=== PATIENT | female | born 1990 | race Caucasian/White ===

== ENCOUNTER 2018-05-28 16:33 | Outpatient (REF) | payer BC, SELFPAY ==
[2018-05-28 22:48] LABS: Tricyclic Antidepressants Negative (Negative)
[2018-05-28 22:49] LABS: *AMPHETAMINES SCREEN URINE Negative (Negative); *BARBITURATES SCREEN URINE Negative (Negative); *BENZODIAZEPINES SCREEN URINE Negative (Negative); Cannabinoids THC Negative (Negative); Cocaine Screen,Urine Negative (Negative); METHADONE URINE SCREEN Negative (Negative); OPIATES URINE SCREEN Negative (Negative)
[2018-06-01 10:01] LABS: Buprenorphine Negative; Norbuprenorphine Negative
== END 2018-05-28 16:53 ==
LOC: LBN 16:33
PROVIDERS: Visit Provider Advanced Practice Midwife
DX: Z34.91 Encounter for supervision of normal pregnancy, unspecified, first trimester (principal)
CPT/HCPCS: 80307; 87086

== ENCOUNTER 2018-06-13 10:46 | Outpatient (CLI) | payer BC, SELFPAY ==
[2018-06-13 11:39] LABS: Abs Immature Grans 0.01 k/cumm (0.0-0.09); Absolute Basophil Count 0.01 k/cumm (0.0-0.2); Absolute Eosinophil Count 0.05 k/cumm (0.0-0.7); Absolute Lymphocyte Count 1.58 k/cumm (1.2-3.4); Absolute Monocyte Count 0.34 k/cumm (0.11-0.7); Absolute Neutrophil Count 2.88 k/cumm (1.2-6.7); Basophils % 0.2; Glucose,1 Hr (Glucola) 100 mg/dL (80-140); HCT 40.1 % (36.0-46.0); HGB 13.6 g/dL (12.0-15.5); Immature Grans % 0.2; Lymphocytes % 32.4; Mean Corp. HGB Concentration 33.9 g/dL (32.0-36.0); Mean Corpuscular Hemoglobin 27.5 pg (27.0-33.0); Mean Platelet Volume 9.6 fL (8.0-11.0); Neutrophils % 59.2; Platelet Count 218 x1000/uL (130-400); RBC 4.95 m/cumm (4.00-5.20); RBC Distribution Width 13.1 % (11.7-14.6); White Blood Cell Count 4.87 k/cumm (4.4-10.8)
[2018-06-14 09:13] LABS: Hepatitis B Surface Ag Negative (NEGAT)
[2018-06-14 09:49] LABS: Hepatitis C Ab w Rflx HCV PCR Negative (NEGAT)
[2018-06-14 09:52] LABS: HIV-1/2 Ag & Ab Screen Negative (NEGAT)
[2018-06-14 11:28] LABS: Rubella IgG Ab (UVM) Positive; Syphilis Serology (RPR) Negative (Negative); Varicella IgG Antibody Positive
== END 2018-06-13 11:06 ==
PROVIDERS: PCP Family Medicine; Visit Provider Advanced Practice Midwife
DX: Z34.91 Encounter for supervision of normal pregnancy, unspecified, first trimester (principal); Z11.59 Encounter for screening for other viral diseases; Z01.84 Encounter for antibody response examination; Z11.4 Encounter for screening for human immunodeficiency virus [HIV]
CPT/HCPCS: 36415; 80055; 82950; 86787; 86803; 86850; 86900; 86901; 87340; 87389; 86592; 86762

== ENCOUNTER 2018-07-08 16:33 | Outpatient (REF) | payer BC, SELFPAY | END 2018-07-08 16:53 | LOC: LBN 16:33 | PROVIDERS: PCP Family Medicine; Visit Provider Advanced Practice Midwife | DX: Z34.91 Encounter for supervision of normal pregnancy, unspecified, first trimester (principal) | CPT/HCPCS: 87491; 87591 ==

== ENCOUNTER 2018-07-29 01:35 | Outpatient (CLI) | payer BC, SELFPAY ==
--- NOTE | 2018-07-29 14:22 | DI.US_ITS ---
SYMPTOM/DIAGNOSIS: 18 WK ANATOMY SURVEY Z34.90 OBSTETRICAL ULTRASOUND: Routine examination was performed There is a single living intrauterine gestation. Estimated sonographic age is 19 weeks 4 days. No placental or abnormalities are identified. The face was not well visualized on this examination and the patient is scheduled to return 07/30/18 for imaging of the face. IMPRESSION: Single living intrauterine gestation. Estimated sonographic age is 19 weeks, 4 days 2. The patient will return 07/30/18 for facial images. Many abnormalities cannot be diagnosed. A normal exam does not exclude a congenital anomaly. Radiology No. [id number] LMP: Exam Date: 07/29/18 [facility] wks days on EDC ([facility]) 12/26/18 Confirmed: HISTORY: 18 week survey PREDICTED GESTATIONAL AGE NUMBER 19 +6 weeks with a range of 18 +6 week to 20 +6 weeks. 1 Determined by___1STUS_XX__LMP___HISTORY Info. pertaining to fetus # PLACENTA PRESENTATION Grade 0-I Cephalic___ Anterior_XX__Posterior___ Breech____ Right Left Transverse(head right__XX_ Fundal___Low-lying___Previa___ Transverse(head left___ Varying BIOMETRY AMNIOTIC FLUID BPD: 43 mm 19 +1 weeks Normal HC: 167 mm 19 +2 weeks AC: 142 mm 19 +4 weeks FL: 33 mm 20 +1 weeks AMNIOTIC FLUID INDEX >26 WK CRL: mm weeks Cisterna Magna: 5 mm CI: 0.77 RUQ: LUQ Cerebellum: 1.9 cm EFW: 317 grams Percentile RLQ: LLQ Total: cms Composite AGE= 19 +4 wks EDC by US__12/19/18 BIOPHYSICAL PROFILE ANATOMY IDENTIFIED SCORE 0/2 Heart: 4-Chamber_X__Rate:BPM_137____ LVOT:___X RVOT:__X Amniotic Fluid(>2cms)____ Stomach:___X____ Kidneys:____X___ Respirations (>30 secs) Bladder:___X Post. Fossa: X Body Flex/Extension 3 vessel cord:__X Ventricles:____X cord insertion:__X___ Lips:_N/S___ Extremity Flex/Extension spinal morphology:_X Nose: N/S Total Score= Palate:__X NS=not seen
== END 2018-07-29 01:55 ==
PROVIDERS: PCP Family Medicine; Visit Provider Advanced Practice Midwife
DX: Z34.92 Encounter for supervision of normal pregnancy, unspecified, second trimester (principal)
CPT/HCPCS: 76805

== ENCOUNTER 2018-08-05 00:48 | Outpatient (CLI) | payer BC, SELFPAY ==
--- NOTE | 2018-08-05 16:00 | DI.US_ITS ---
Many abnormalities cannot be diagnosed. A normal exam does not exclude a congenital anomaly. Radiology No. LMP: Exam Date: 08/05/18 [facility] wks days on EDC ([facility]) Confirmed: HISTORY: FU FOR FACIAL VIEWS PREDICTED GESTATIONAL AGE NUMBER weeks with a range of week to weeks. 1 Determined by___1STUS___LMP___HISTORY Info. pertaining to fetus # PLACENTA PRESENTATION Grade 0-1 Cephalic___ Anterior_X__Posterior___ Breech__X__ Right Left Transverse(head right___ Fundal___Low-lying___Previa___ Transverse(head left___ Varying BIOMETRY AMNIOTIC FLUID BPD: mm weeks Normal HC: mm weeks AC: mm weeks FL: mm weeks AMNIOTIC FLUID INDEX >26 WK CRL: mm weeks Cisterna Magna: mm CI: RUQ: LUQ Cerebellum: cm EFW: grams Percentile RLQ: LLQ Total: cms Composite AGE= wks EDC by US BIOPHYSICAL PROFILE ANATOMY IDENTIFIED SCORE 0/2 Heart: 4-Chamber___Rate:BPM LVOT: RVOT: Amniotic Fluid(>2cms)____ Stomach: Kidneys: Respirations (>30 secs) Bladder: Post. Fossa: Body Flex/Extension 3 vessel cord: Ventricles: cord insertion: Lips:__X__ Extremity Flex/Extension spinal morphology: Nose:X Total Score= Palate:____X___ NS=not seen Limited sonographic evaluation of the face was performed following OB ultrasound from 07/29/18. There is a single intrauterine gestation. The fetus is in the breech position. The lips, nose and mouth are unremarkable and well visualized. Amniotic fluid appears within normal limits. The placenta is anterior without evidence of previa.
== END 2018-08-05 01:08 ==
PROVIDERS: PCP Family Medicine; Visit Provider Advanced Practice Midwife
DX: Z34.92 Encounter for supervision of normal pregnancy, unspecified, second trimester (principal); Z36.2 Encounter for other antenatal screening follow-up
CPT/HCPCS: 76815

== ENCOUNTER 2018-08-06 17:44 | Outpatient (REF) | payer BC, SELFPAY ==
[2018-08-08 14:57] LABS: Chlamydia Result Negative; GC Result Negative; Specimen Description URINE
== END 2018-08-06 18:04 ==
LOC: LBN 17:44
PROVIDERS: PCP Family Medicine; Visit Provider Advanced Practice Midwife
DX: Z34.92 Encounter for supervision of normal pregnancy, unspecified, second trimester (principal); Z11.3 Encounter for screening for infections with a predominantly sexual mode of transmission
CPT/HCPCS: 87491; 87591

== ENCOUNTER 2018-10-01 14:54 | Outpatient (CLI) | payer BC, SELFPAY ==
[2018-10-01 15:28] LABS: HGB 12.9 g/dL (12.0-15.5); Mean Corp. HGB Concentration 33.1 g/dL (32.0-36.0); Mean Corpuscular Hemoglobin 27.3 pg (27.0-33.0); Mean Corpuscular Volume 82.6 fL (80-95); Mean Platelet Volume 9.4 fL (8.0-11.0); Platelet Count 237 x1000/uL (130-400); RBC 4.72 m/cumm (4.00-5.20); RBC Distribution Width 13.7 % (11.7-14.6); White Blood Cell Count 7.44 k/cumm (4.4-10.8)
[2018-10-01 15:30] LABS: Glucose,1 Hr (Glucola) 121 mg/dL (80-140)
== END 2018-10-01 15:14 ==
PROVIDERS: Advanced Practice Midwife; PCP Family Medicine; Visit Provider Advanced Practice Midwife
DX: Z34.92 Encounter for supervision of normal pregnancy, unspecified, second trimester (principal)
CPT/HCPCS: 36415; 82950; 85027

== ENCOUNTER 2018-11-26 16:42 | Outpatient (REF) | payer BC, SELFPAY ==
[2018-11-26 18:28] LABS: *AMPHETAMINES SCREEN URINE Negative (Negative); *BARBITURATES SCREEN URINE Negative (Negative); *BENZODIAZEPINES SCREEN URINE Negative (Negative); Cannabinoids THC Negative (Negative); Cocaine Screen,Urine Negative (Negative); METHADONE URINE SCREEN Negative (Negative); OPIATES URINE SCREEN Negative (Negative)
[2018-11-26 18:30] LABS: Tricyclic Antidepressants Negative (Negative)
[2018-12-02 10:00] LABS: Buprenorphine Negative; Norbuprenorphine Negative
== END 2018-11-26 17:02 ==
LOC: LBN 16:42
PROVIDERS: PCP Family Medicine; Visit Provider Advanced Practice Midwife
DX: Z34.93 Encounter for supervision of normal pregnancy, unspecified, third trimester (principal); Z36.85 Encounter for antenatal screening for Streptococcus B
CPT/HCPCS: 80307; 87081

== ENCOUNTER 2019-01-02 08:37 | Outpatient (CLI) | payer BC, SELFPAY | END 2019-01-02 08:57 | PROVIDERS: PCP Family Medicine; Visit Provider Advanced Practice Midwife | DX: O48.0 Post-term pregnancy (principal); Z3A.41 41 weeks gestation of pregnancy | CPT/HCPCS: 59025 ==

== ENCOUNTER 2019-01-03 04:38 | Inpatient (IN) | payer BC, SELFPAY ==
[2019-01-03 05:25] LABS: HCT 39.5 % (36.0-46.0); HGB 13.4 g/dL (12.0-15.5); Mean Corp. HGB Concentration 33.9 g/dL (32.0-36.0); Mean Corpuscular Hemoglobin 27.3 pg (27.0-33.0); Mean Corpuscular Volume 80.6 fL (80-95); Mean Platelet Volume 10.4 fL (8.0-11.0); Platelet Count 227 x1000/uL (130-400); RBC Distribution Width 14.3 % (11.7-14.6); White Blood Cell Count 9.84 k/cumm (4.4-10.8)
[2019-01-03] MEDS: Ibuprofen 600 MG TAB PO ×3 (08:30→20:03)
[2019-01-03] MEDS: Acetaminophen 325 MG TAB 650 MG PO ×3 (08:30→20:02)
[2019-01-04 07:28] LABS: HGB 11.4 g/dL (12.0-15.5); Mean Corp. HGB Concentration 32.6 g/dL (32.0-36.0); Mean Corpuscular Hemoglobin 27.3 pg (27.0-33.0); Mean Corpuscular Volume 83.9 fL (80-95); Mean Platelet Volume 10.4 fL (8.0-11.0); Platelet Count 155 x1000/uL (130-400); RBC 4.17 m/cumm (4.00-5.20); RBC Distribution Width 14.4 % (11.7-14.6)
[2019-01-04] MEDS: Prenatal Multivitamin w/CA,FE TAB 1 TAB PO (10:04)
== END 2019-01-04 12:15 | disposition home or self-care (01) | DRG 807 ==
PROVIDERS: Admitting Provider Advanced Practice Midwife; PCP Family Medicine; Visit Provider Advanced Practice Midwife
DX: O48.0 Post-term pregnancy (principal); Z37.0 Single live birth; Z3A.41 41 weeks gestation of pregnancy; Z67.10 Type A blood, Rh positive; O32.6XX0 Maternal care for compound presentation, not applicable or unspecified
CPT/HCPCS: 36415; 85027; 86850; 86900; 86901

== ENCOUNTER 2019-02-14 12:59 | Outpatient (REF) | payer BC, SELFPAY ==
--- NOTE | 2019-02-14 11:45 | PAPFT_PTH ---
PATIENT: Sheyla Acevedo LOC: [facility] U#:[id number] AGE/SX: 28/F ROOM: RE02/14/[address]: Rc Ortega RN : 1990 BED: DIS: 02/14/2019 SPEC #: [id number] RECD: 02/14/19 13:08 STATUS: GEE CARRASCO #: [id number] MARIANA: 02/14/19 11:[address]: Rc Ortega DEPT: [facility] Cytology RECD BY: Brittani Jackson ENTERED: 02/14/19 13:08 SP TYPE: PAPFT OTHR DR: Terra Godinez Tissues: 1 - CX/ENDOCX FOR PAP SMEARS Procedures: PAP THIN PREP/UVM Screening Comments: [id number]
== END 2019-02-14 13:19 ==
LOC: LBN 12:59
PROVIDERS: PCP Family Medicine; Visit Provider Advanced Practice Midwife
DX: Z12.4 Encounter for screening for malignant neoplasm of cervix (principal)
CPT/HCPCS: 88142

== ENCOUNTER 2020-02-20 16:06 | Outpatient (REF) | payer BC, SELFPAY ==
[2020-02-22 14:52] LABS: Patient Race White; SARS-CoV-2 RNA Undetected (Undetected); SARS-CoV-2 Specimen Source Nasal
== END 2020-02-20 16:26 ==
LOC: NCHCN 16:06
PROVIDERS: PCP Nurse Practitioner; Visit Provider Nurse Practitioner Family
DX: J02.9 Acute pharyngitis, unspecified (principal)
CPT/HCPCS: U0003

== ENCOUNTER 2020-07-21 03:45 | Outpatient (CLI) | payer BC, MEDICAID, SELFPAY ==
[2020-07-21 14:29] LABS: Abs Immature Grans 0.02 10^3/uL (0.0-0.06); Absolute Basophil Count 0.02 10^3/uL (0.0-0.2); Absolute Eosinophil Count 0.05 10^3/uL (0.0-0.7); Absolute Lymphocyte Count 2.06 10^3/uL (1.2-3.4); Absolute Monocyte Count 0.32 10^3/uL (0.1-0.8); Absolute Neutrophil Count 3.69 10^3/uL (1.2-6.7); Basophils % 0.3; Eosinophils % 0.8; HCT 39.6 % (36.0-46.0); HGB 13.4 g/dL (11.2-15.7); Immature Grans % 0.3; Lymphocytes % 33.4; MCH 27.3 pg (27.0-33.0); MCHC 33.8 % (32.0-36.0); MCV 80.7 fL (80-95); Monocytes % 5.2; Nucleated RBC 0 %; Platelet Count 241 10^3/uL (130-400); RBC 4.91 10^6/uL (3.93-5.22); RDW 12.7 % (11.7-14.6); RDW-SD 36.8 fL; WBC 6.16 10^3/uL (4.4-10.8)
[2020-07-21 15:28] LABS: TSH (W/Ref FT4) 1.32 uIU/mL (0.36-3.74)
[2020-07-21 17:36] LABS: *AMPHETAMINES SCREEN URINE Negative (Negative); *BARBITURATES SCREEN URINE Negative (Negative); *BENZODIAZEPINES SCREEN URINE Negative (Negative); Cannabinoids THC Negative (Negative); Cocaine Screen,Urine Negative (Negative); METHADONE URINE SCREEN Negative (Negative); OPIATES URINE SCREEN Negative (Negative)
[2020-07-21 17:39] LABS: Tricyclic Antidepressants Negative (Negative)
[2020-07-22 09:46] LABS: Hepatitis B Surface Ag Negative (Negative)
[2020-07-22 10:24] LABS: Hepatitis C Ab w Rflx HCV PCR Negative (Negative)
[2020-07-22 10:35] LABS: HIV-1/2 Ag & Ab Screen Negative (Negative)
[2020-07-22 12:06] LABS: Varicella IgG Antibody Positive (See Note)
[2020-07-22 12:09] LABS: Rubella IgG Ab (UVM) Positive (See Note)
[2020-07-23 11:20] LABS: Syphilis Total Ab w/Reflex Nonreactive (Nonreactive)
[2020-07-23 15:04] LABS: Chlamydia Result Negative (Negative); GC Result Negative (Negative)
[2020-07-29 09:57] LABS: Buprenorphine Negative ng/mL (Cutoff: 5.0); Norbuprenorphine Negative ng/mL (Cutoff: 2.5)
== END 2020-07-21 03:46 | disposition home or self-care (01) ==
LOC: LBO 03:45
PROVIDERS: PCP Nurse Practitioner; Visit Provider Advanced Practice Midwife
DX: Z34.91 Encounter for supervision of normal pregnancy, unspecified, first trimester (principal); Z11.4 Encounter for screening for human immunodeficiency virus [HIV]; Z11.59 Encounter for screening for other viral diseases; Z01.84 Encounter for antibody response examination; Z11.3 Encounter for screening for infections with a predominantly sexual mode of transmission
CPT/HCPCS: 36415; 80307; 86787; 86803; 86850; 86900; 86901; 87340; 87389; 87491; 87591; 84443; 85025; 86762; 86780; 87086

== ENCOUNTER 2020-08-02 02:00 | Outpatient (CLI) | payer BC, SELFPAY ==
[2020-08-02 15:22] LABS: Glucose,1 Hr (Glucola) 90 mg/dL (80-140)
== END 2020-08-02 02:01 | disposition home or self-care (01) ==
LOC: LBO 02:01
PROVIDERS: PCP Nurse Practitioner; Visit Provider Advanced Practice Midwife
DX: Z34.91 Encounter for supervision of normal pregnancy, unspecified, first trimester (principal)
CPT/HCPCS: 36415; 82950

== ENCOUNTER 2020-11-11 02:37 | Outpatient (CLI) | payer BC, MEDICAID, SELFPAY ==
[2020-11-11 15:05] LABS: HCT 35.5 % (36.0-46.0); HGB 11.9 g/dL (11.2-15.7); MCH 27.2 pg (27.0-33.0); MCHC 33.5 % (32.0-36.0); MCV 81.1 fL (80-95); Platelet Count 237 10^3/uL (130-400); RBC 4.38 10^6/uL (3.93-5.22); RDW 13.4 % (11.7-14.6); RDW-SD 38.8 fL; WBC 7.96 10^3/uL (4.4-10.8)
[2020-11-11 15:12] LABS: Glucose,1 Hr (Glucola) 125 mg/dL (80-140)
== END 2020-11-11 02:38 | disposition home or self-care (01) ==
PROVIDERS: Advanced Practice Midwife; PCP Nurse Practitioner; Visit Provider Advanced Practice Midwife
DX: Z34.93 Encounter for supervision of normal pregnancy, unspecified, third trimester (principal); Z3A.28 28 weeks gestation of pregnancy
CPT/HCPCS: 36415; 82950; 85027

== ENCOUNTER 2021-01-07 20:42 | Outpatient (REF) | payer BC, MEDICAID, SELFPAY ==
[2021-01-07 17:22] LABS: *AMPHETAMINES SCREEN URINE Negative (Negative); *BARBITURATES SCREEN URINE Negative (Negative); *BENZODIAZEPINES SCREEN URINE Negative (Negative); Cannabinoids THC Negative (Negative); Cocaine Screen,Urine Negative (Negative); METHADONE URINE SCREEN Negative (Negative); OPIATES URINE SCREEN Negative (Negative)
[2021-01-07 17:25] LABS: Tricyclic Antidepressants Negative (Negative)
[2021-01-15 11:39] LABS: Buprenorphine Negative ng/mL (Cutoff: 5.0); Norbuprenorphine Negative ng/mL (Cutoff: 2.5)
== END 2021-01-07 20:43 | disposition home or self-care (01) ==
LOC: LBN 20:42
PROVIDERS: PCP Nurse Practitioner; Visit Provider Advanced Practice Midwife
DX: Z34.93 Encounter for supervision of normal pregnancy, unspecified, third trimester (principal); Z36.85 Encounter for antenatal screening for Streptococcus B; Z3A.36 36 weeks gestation of pregnancy
CPT/HCPCS: 80307; 87081

== ENCOUNTER 2021-02-05 06:11 | Inpatient (IN) | payer BC, MEDICAID, SELFPAY ==
[2021-02-05] VITALS (14 sets, daily range): BP systolic 101–133; BP diastolic 64–82; PULSE 61–96; RESP 16–19; TEMP 36.5–36.9; O2SAT 98–99
--- NOTE | 2021-02-05 07:38 | W.PM.OBHPL1 ---
Date of service: 02/05/21 Time of Service: 07:38 Assessment and Plan Assessment and plan (1) Active labor at term: Status: Acute OB-HPI Labor/Delivery History of Present Illness Reason for Visit: R/O LABOR Chief Complaint: Uterine Contractions; Suspected Rupture of Membranes , Associated Signs and Symptoms of Suspected ROM: grossly ruptured for clear fluid. LIS. JESSICA Calculator Estimated Delivery Date Method Current WG Current Estimate 02/02/21 LMP (Certain) 40w 3d Other Estimates 02/02/21 Ultrasound #1 40w 3d Comments: Sheyla presents with grossly ruptured membranes this morning with contractions every 5 minutes that are mild to moderate. Reports active baby. Fluid is clear. LIS History of Present Expected Delivery Route/Plan - CNM FOB/ - Paul Acevedo Desires tub for labor and possibly waterbirth BG Breast feed GBS negative Specific Issues/Plan 1. Declines all optional AP screening, declination form signed 2. Varicose vein in right leg, uses compression stockings and elevation 2a. family hx of thrombophilia, pt had w/up x2, both neg; sister doesn't have a clotting disorder 3. BMI 34, early glucola = 90, GTT at 28 weeks - 125. 4. heartburn - declines medications. relief methods discussed 5. seasonal allergies 6. Considering COVID vaccine PP, partner has had his first dose and will get second around time of delivery Informed Consent Informed Consent: Other (admission and expected NVD reviewed. LIS) Review of Systems All systems reviewed & are unremarkable except as noted in HPI and below PFSH Medical History Encounter for routine follow-up General counseling and advice on contraceptive management Patient is a currently breast-feeding mother state zaman IUP. JESSICA 12/26/18 Family History Maternal Grandmother Clotting disorder while taking estrogen Stroke Mother Clotting disorder DVT after leg injury while on OCPs. Social History Smoking/Tobacco Use Status: Never Smoking risk assessment performed?: Yes Alcohol Intake: former Substance use type: does not use current occupation: [employer] worker Female Reproductive History Menstrual control method: none History History 3 Para 2 Hx # Term Pregnancies 2 Multiple births 0 Hx # Pregnancies 0 Ectopic pregnancies 0 AB induced 0 Hx Number of Living Children 2 AB spontaneous 0 Past Pregnancies Del. Date GA/Weeks # Outcome Route Wgt Sex Labor Lgth Anesthesia Location Prov Complic 04/19/17 41 No Successful vaginal 7 lb 13 oz Female 50 hrs [facility] in [facility] care 01/03/19 41 No Successful vaginal 8 lb 14 oz Female 10 hrs [facility] Delivery Date: 04/19/17 Spont labor onset day of scheduled IOL for post dates, AROM, used tub, ambulation, long labor but 15 minutes pushing, no stitches. Chiquita Reed Delivery Date: 01/03/19 FOB helped catch baby, good experience. Was going to do a waterbirth but told to get out of tub for lab draw and then no time to get back in. Chiquita Reed Meds Allergies and Home Medications Allergies Allergy/AdvReac Type Severity Reaction Status Date / Time No Known Allergies Allergy Verified 02/05/21 07:42 Home Medications Medication Instructions Recorded Confirmed Type prenat.vits,nyla,[id number] 1 tab PO DAILY 04/24/18 02/05/21 History Exam Physical Exam Vital signs: Temp Pulse BP 98.4 F 87 117/82 02/05/21 06:35 02/05/21 06:37 02/05/21 06:37 Vital Signs Reviewed: Yes Constitutional Constitutional: no acute distress Detailed Labor and Delivery Exam Grace Score: Cervical Points Exam 0 1 2 3 Dilation Closed 1-2cm 3-4 cm 5-6cm Effacement 0-30% 40-50% 60-70% 80% Consistency Firm Medium Soft Station -3 -2 -1,0 +1,+2 Position Posterior Mid Anterior Rupture Method: Spontaneous Amniotic Fluid: Clear Monitor Mode: Palpation Contraction Frequency(min): 5 Contraction Duration(sec): 45-60 Contraction Intensity: Mild/Moderate Fetus A Presentation: Cephalic Categories: Category I Date of Membrane Rupture: 02/05/21 Time of Membrane Rupture: 03:00 Assessment Note: 20-30 minute tracing on arrival CAT I, reassuring. KH HEENT Exam HEENT Exam: Normal Neck Exam Neck Exam: Not Done Chest/Brest/Axilla Exam Chest Exam: Not Done Breast Exam Breast Exam: Not Done Respiratory Exam Respiratory Exam: Normal Cardiovascular Exam Cardiovascular Exam: Normal Abdominal Exam Abdominal Exam: Normal (gravid, fundal akua 39, EFW 9lb) Rectal Exam Rectal Exam: Not Done Exam Exam: Normal Extremities Exam Extremities Exam: Normal Back/Spine/Pelvis Exam Back Exam: Not Done Pelvis Adequate: Yes Skin Exam Skin Exam: Normal Neurological Exam Neurological Exam: Normal Psychiatric Exam Psychiatric Exam: Normal Results Results Group Beta Strep: Negative Blood Type: A+ Rubella Status: Immune Varicella Immunity: Immune Risk Assessment Risk for Shoulder Dystocia Historical/Initial OB: POSITIVE FOR: Pre- BMI>30; NEGATIVE FOR: Pelvic Abnormality, Previous Shoulder Dystocia or Previous Macrosomia 40 Weeks: NEGATIVE FOR: EFW> 4500 gms, Maternal Weight Gain >40lb or Post Dates Increased Risk?: No Date/Initial: 02/05/21 Delivery Plan @ 36wks: NVD expected. Risk for Pre-Eclampsia Daily Dose ASA Indicated: No Yes, if one or more: NEGATIVE FOR: Hx Pre-E/Gest HTN, Chronic HTN, Multiple Gestation, Pre-gestational DM, Renal Disease, Systemic Lupus or APA Syndrome Yes, if 2 or more: POSITIVE FOR: BMI>30; NEGATIVE FOR: Nulliparity, Age>= 35 yrs, >10yr btwn pregnancies, ethinicty, Mother/Sister w/ Pre-E or Previous IUGR Risk for Post- Hemorrhage Initial: NEGATIVE FOR: Multiple Gestation, Previous PPH, Known Clotting Deficiency (pt had negative thrombophilia w/up twice d/t fam hx, (@[facility])), Grand Multiparity or Anticoagulation At Risk?: No Counseled re: Active Management: Yes Date/Initials: 02/05/21 Risks Reviewed Risks Reviewed Upon Admission: Yes
[2021-02-05 07:45] LABS: Source Nasal/Nares
[2021-02-05 07:52] LABS: HCT 38.5 % (36.0-46.0); HGB 12.8 g/dL (11.2-15.7); MCH 26.5 pg (27.0-33.0); MCHC 33.2 % (32.0-36.0); MCV 79.7 fL (80-95); MPV 10.3 fL (8.0-11.0); Platelet Count 220 10^3/uL (130-400); RBC 4.83 10^6/uL (3.93-5.22); RDW 14.8 % (11.7-14.6); RDW-SD 42.6 fL; WBC 7.81 10^3/uL (4.4-10.8)
[2021-02-05 08:38] LABS: COVID-19 PCR Negative (Negative)
--- NOTE | 2021-02-05 10:12 | W.OBDELIVERY ---
Date of service: 02/05/21 Time of Service: 10:13 OB Labor/ Delivery Information Baby A Delivery Delivery Method: Spontaneaous Presentation: Cephalic Cephalic Position: Vertex Vertex Position: Right Occipital Anterior Breech Position: N/A Cord Description-Baby A: 3 Vessels Amniotic Fluid: Clear Delivery Outcome: Liveborn Complications: none Infant Transferred: Remains with Mother Note: Sheyla presented in active labor after SROM at 0300 this monring and progressed to complete dilation with involuntary urge to push while standing at bedside at 0856. She pushed with good effort and live female delivered ABNER after rotating from LOP while at 0947. Baby's shoulders delivered with ease and baby was brought to Mother's abdomen for skin to skin with Mother reaching down to deliver body of baby. at one minute 9 and at 5 minutes was 9. 3 vessel cord. Weight pending to allow for skin to skin and breast feeding. Placenta delivered spontaneously via juan mechanism at 0956. Fundus firms to U with massage and 10 units of pitocin were given IM prior to placenta delivering. QBL 150. Perineum and vagina intact. Sponge, needle and instrument count are correct. Mother and baby girl Dex Acevedo are in satisfactory condition. Baby was at breast nursing well within 15 minutes of delivery. Providers Nurse Real Estate Assessor: Analilia Gregory Nurse: Astrid Lindsay Nurse: Chayito Castro Labor/Delivery Information Number of Babies in Womb: 1 Steroids Given: None Reason Steroids Not Administered: N/A Group Beta Strep: Negative Antibiotics Administered: No Rubella Status: Immune Blood Type: A+ Varicella Immunity: Immune Maternal Complications: None Shoulder Dystocia: No Stages of Labor Onset of Labor Date: 02/05/21 Onset of Labor Time: 06:25 Complete Dilatation Date: 02/05/21 Labor - Stage 1 Duration: 0 minutes ROM Baby A: 02/05/21 ROM Baby A: 03:00 ROM Total Time- Baby A: [id number] Delivery Date-Baby A: 02/05/21 Infant Delivery Time-Baby A: 09:47 Placenta Delivery Date-Baby A: 02/05/21 Placenta Delivery Time-Baby A: 09:56 Labor-Stage 3 Duration: 9 minutes Total Length of Labor-Baby A: 3 hours and 22 minutes Placenta Cultured: No Placenta Status: Delivered Baby A Infant Gender: Female Gestational Status: Term (39-41.6 wks) Gestational Age in Weeks/Days: 40 Weeks and 3 Days weight: 7 lb 4 oz Score-1 Minute Interval(Baby A) Heart Rate-1 minute: 100 BPM or Greater Respiratory Effort- 1 minute: Spontaneous/Strong Cry Muscle Tone-1 minute: Active Movement Reflex Response-1 minute: Prompt Response Color-1 minute: Bluish Hands or Feet Score-5 Minute Interval(Baby A) Heart Rate- 5 minute: 100 BPM or Greater Respiratory Effort-5 minute: Spontaneous/Strong Cry Muscle Tone-5 minute: Active Movement Reflex Response-5 minute: Prompt Response Color-5 minute: Bluish Hands or Feet
[2021-02-05] MEDS: Methylergonovine 0.2 MG/ML VIAL IM (11:09)
[2021-02-05] MEDS: Oxytocin 10 UNITS/ML VIAL IM (11:09)
--- NOTE | 2021-02-05 11:13 | W.PM.PROGNOT ---
Date of Service Date of service: 02/05/21 Time of Service: 11:13 Assessment and Plan Assessment and plan (1) care following vaginal delivery: Start date: 02/05/21 Start time: 11:16 Status: Acute Assessment and plan: will allow patient to be out of bed and shower and void. Due to mildly increased lochia will give Mthergine 0.2mg IM now as well. Nursing will continue to monitor for any increase in bleeding. LIS Subjective Subjective Patient reports: no new complaints, tolerating liquids well and tolerating a regular diet Exam Narrative Exam Narrative: fundus is firm but above U, moderate lochia. Resp Effort & Inspection: normal respiratory effort Cardio Rate: regular rate External Female Exam: normal external appearance Psych Appearance: grossly normal Mood: congruent mood Attitude: cooperative Thought Content: normal Insight: insight good Judgment: judgment good Objective Last Vital Signs Temp 98.4 F 02/05/21 06:35 Pulse 83 02/05/21 10:51 BP 121/80 02/05/21 10:51 Laboratory Results - last 24 hr 02/05/21 02/05/21 02/05/21 07:24 07:30 07:30 WBC 7.81 RBC 4.83 Hgb 12.8 Hct 38.5 MCV 79.7 L MCH 26.5 L MCHC 33.2 RDW 14.8 H Plt Count 220 MPV 10.3 COVID-19 Source Nasal/Nares SARS-CoV-2 (PCR) Negative Patient ABO/Rh A Positive Antibody Screen NEGATIVE Objective Narrative Objective Narrative: VS stable
[2021-02-05] MEDS: Ibuprofen 600 MG TAB PO (13:06)
[2021-02-05] MEDS: Acetaminophen 325 MG TAB 650 MG PO (16:29)
[2021-02-06 07:39] VITALS: BP 103/71; PULSE 86; RESP 12; TEMP 36.5; O2SAT 97
--- NOTE | 2021-02-06 09:14 | W.PM.OBDISCH ---
Date of service: 02/06/21 Time of Service: 09:14 DS: Diagnosis Discharge Diagnosis (1) care following vaginal delivery: Status: Acute Asessment and Plan: Caring for baby independently. Pain is managed well with oral analgesics. Voiding without difficulty. well. A - stable mother and baby , Post day 1, well. 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 Routine post instructions. [facility] Discharge Plan Discharge Details Reason For Visit: R/O LABOR Admit Date/Time: 02/05/21 06:11 Admit Provider: Analilia Daniel Attending Provider: Analilia Daniel Primary Care Provider: Kristyn Lara Home Meds and New Rx's Prescriptions: Continued prenat.vits,nyla,[id number] tablet 1 tab PO DAILY RF: 0 Discharge Instructions Stand Alone Forms: BC Post Vaginal Deliver Activity:: Activity as Tolerated Activity:: Activity as Tolerated Equipment/Supplies:: No Equipment Needed Diet:: As Tolerated OB:DS Summary Summary Vaginal Delivery Method: Spontaneaous Episiotomy Description: None Laceration Description: None Laceration Extension: N/A Contraception Discussed Contraception Discussed: Yes Contraceptive Plan: IUD, [place] Gender-Baby A: Female weight: 7 lb 4 oz Status at Discharge Functional status at discharge: independent ambulation Overall status at discharge: patient is back to baseline Mental Status: mental status grossly normal Speech and Movement: speech and movement normal Mood: congruent mood Affect: normal affect Exam Physical Exam Vital signs: Temp Pulse Resp BP Pulse Ox 97.7 F 86 12 103/71 97 02/06/21 07:39 02/06/21 07:39 02/06/21 07:39 02/06/21 07:39 02/06/21 07:39 Constitutional Constitutional: no acute distress Respiratory Exam Respiratory Exam: Normal Cardiovascular Exam Cardiovascular Exam: Normal Fundal Exam Fundus: Below Umbilicus and Firm Rectal Exam Rectal Exam: Normal Extremities Exam Extremity Exam: Normal Skin Exam Skin Exam: Normal Psychiatric Exam Psychiatric Exam: Normal [facility] Medical History Encounter for routine follow-up General counseling and advice on contraceptive management Patient is a currently breast-feeding mother state zaman IUP. JESSICA 12/26/18 Family History Maternal Grandmother Clotting disorder while taking estrogen Stroke Mother Clotting disorder DVT after leg injury while on OCPs. Social History Smoking/Tobacco Use Status: Never Smoking risk assessment performed?: Yes Alcohol Intake: former Substance use type: does not use current occupation: [employer] worker Female Reproductive History Menstrual control method: none History History 3 Para 2 Hx # Term Pregnancies 2 Multiple births 0 Hx # Pregnancies 0 Ectopic pregnancies 0 AB induced 0 Hx Number of Living Children 2 AB spontaneous 0 Past Pregnancies Del. Date GA/Weeks # Outcome Route Wgt Sex Labor Lgth Anesthesia Location Prov Complic 04/19/17 41 No Successful vaginal 7 lb 13 oz Female 50 [place] [facility] [place] [facility] care 01/03/19 41 No Successful vaginal 8 lb 14 oz Female 10 hrs [facility] Delivery Date: 04/19/17 Spont labor onset day of scheduled IOL for post dates, AROM, used tub, ambulation, long labor but 15 minutes pushing, no stitches. Chiquita Reed Delivery Date: 01/03/19 FOB helped catch baby, good experience. Was going to do a waterbirth but told to get out of tub for lab draw and then no time to get back in. Chiquita Reed DS: Data Vitals/I&O Vitals and I&O: Vital Signs Temperature 97.7 F 02/06/21 07:39 Pulse 86 02/06/21 07:39 Pulse Rhythm Regular 02/05/21 20:41 Respiratory Rate 12 02/06/21 07:39 Respiratory Depth Normal 02/06/21 07:15 Blood Pressure 103/71 02/06/21 07:39 Blood Pressure Mean 81 02/06/21 07:39 Pulse Oximetry 97 02/06/21 07:39 Pain Level 3 02/05/21 16:29 Intake & Output 02/05/21 02/05/21 02/06/21 11:59 23:59 11:59 Output Total 640 / 1590 950 / 1590 Balance -640 / -1590 -950 / -1590 Output: Urine 500 / 1450 950 / 1450 Blood 140 / 140 Other: Urine Color Yellow
== END 2021-02-06 13:00 | disposition home or self-care (01) | DRG 807 ==
PROVIDERS: Admitting Provider Advanced Practice Midwife; PCP Nurse Practitioner; Visit Provider Advanced Practice Midwife
DX: O22.03 Varicose veins of lower extremity in pregnancy, third trimester (principal); Z37.0 Single live birth; Z3A.40 40 weeks gestation of pregnancy; Z20.822 Contact with and (suspected) exposure to COVID-19
CPT/HCPCS: 36415; 85027; 86850; 86900; 86901; 87635; J2210; J2590

== ENCOUNTER 2021-02-12 18:28 | Emergency (ER) | payer BC, MEDICAID, SELFPAY ==
[2021-02-12 18:30] VITALS: PULSE 78; RESP 18; TEMP 36.1; O2SAT 99
--- NOTE | 2021-02-12 18:30 | ED.GENADUL_ITS ---
Discharge Plan Disposition Patient Disposition: HOME Condition: Stable Discharge Details Clinical Impression: Leg pain Primary Care Provider: Kristyn Lara ED Provider: Joaquin Walls Home Meds and New Rx's Prescriptions: Continued prenat.vits,nyla,jow-csfy-cexyt tablet 1 tab PO DAILY RF: 0 Discharge Instructions Instructions: Leg Pain (ED) Additional Instructions: Your examination is most consistent with superficial phlebitis or DVT, less suspicious for cellulitis. Laboratory values were drawn and are pending, I will not make UA here in the ER for the results as they will not change her disposition this evening. You have been given a single dose of Lovenox now, return to the ER tomorrow morning at 8:45 AM and our product/device technologist will be coming in at 9 AM to perform an ultrasound of your leg to rule out DVT. Please watch for new or worsening symptoms and return to the ER sooner as needed. Medical Decision Making 30-year-old female, 8 days , presents for atraumatic posterior right leg pain and swelling. Clinically most concerning for DVT versus superficial phlebitis. Less likely cellulitis in nature. Would like to obtain ultrasound but it is Sunday evening and we do not have ultrasound capabilities. Contact our radiology department and attempted to call in a tech but unsuccessful. The best I can do is set her up for an ultrasound tomorrow at 9 AM, the tech early intervention school psychologist will come in but does want a D-dimer ordered. Given my clinical suspicion, and the fact that she is just , I want an ultrasound regardless of what the D-dimer is. Patient will be given a single dose of Lovenox now. Will obtain CBC, CMP, coags and D-dimer. I will not set the patient up with outpatient ultrasound as the plan will be for her to return to the ER at 8:45 AM and our c2 tactical analysis technician will come to the hospital at 9 AM to perform the ultrasound. I will not make the patient await her laboratory values this evening as they will likely not change her disposition and she has a-day-old baby with her. Standard discharge and return precautions This documentation was generated using Pcs[employer]ation system, please disregard any oddities of phrase or misspellings. Medical Records Medical records reviewed: Yes I reviewed the patient's medical records. Lab Data Lab results reviewed: Yes I reviewed the patient's lab results. Labs: Laboratory Tests Range/Units 02/12/21 02/12/21 02/12/21 19:20 19:20 19:20 WBC (4.4-10.8) 10^3/uL 5.39 RBC (3.93-5.22) 10^6/uL 4.90 Hgb (11.2-15.7) g/dL 12.9 Hct (36.0-46.0) % 40.5 MCV (80-95) fL 82.7 MCH (27.0-33.0) pg 26.3 L MCHC (32.0-36.0) % 31.9 L RDW (11.7-14.6) % 14.1 Plt Count (130-400) 10^3/uL 279 MPV (8.0-11.0) fL 9.2 Immature Gran % 0.6 Neutrophils % 50.7 Lymphocytes % 39.3 Monocytes % 6.9 Eosinophils % 1.9 Basophils % 0.6 Nucleated RBC % % 0 Absolute Neutrophils (1.2-6.7) 10^3/uL 2.74 Absolute Lymphocytes (1.2-3.4) 10^3/uL 2.12 Absolute Monocytes (0.1-0.8) 10^3/uL 0.37 Absolute Eosinophils (0.0-0.7) 10^3/uL 0.10 Absolute Basophils (0.0-0.2) 10^3/uL 0.03 PT (9.3-11.0) sec 9.7 INR (0.9-1.1) 1.0 APTT (21.0-27.5) sec 23.2 D-Dimer (<500) ng/mlFEU 982 H Sodium (136-145) mmol/L 140 Potassium (3.5-5.1) mmol/L 3.8 Chloride (98-107) mmol/L 104 Carbon Dioxide (21.0-32.0) mmol/L 27.1 Anion Gap (3-11) mmol/L 8.9 BUN (7-18) mg/dL 11 Creatinine (0.55-1.02) mg/dL 0.7 Estimated GFR/1.73 m2 (mL/min/1.73m2) >= 60.00 Glucose (74-106) mg/dL 94 Calcium (8.5-10.1) mg/dL 9.3 Total Bilirubin (0.2-1.0) mg/dL 0.3 AST (15-37) U/L 51 H ALT (14-59) U/L 97 H Alkaline Phosphatase (46-116) U/L 119 H Total Protein (6.4-8.2) g/dL 7.5 Albumin (3.4-5.0) g/dL 3.3 L HPI General Mode of arrival: ambulatory . Date/Time Provider Initiated Documentation: 02/12/21 18:29 . Limitations to Documentation: no limitations . Information obtained by: patient . HPI Narrative: This is a 30-year-old, denies significant past medical history, from an uncomplicated vaginal on 02-04-21, presenting to the ER complaining of right leg pain, swelling, concern for DVT. Patient states that the issue began on Sunday, nontraumatic. She denies any fever, chest pain, shortness of breath, history of DVT. Patient states that there is a family history of DVT. She reports that she has no more true vaginal bleeding and now only has occasional spotting. Patient has no additional questions or concerns at this time. She is currently breast-feeding. She contacted her content curator who recommended coming to the ER. Related Data Home Medications Medication Instructions Recorded Confirmed prenat.vits,nyla,qrx-npru-vwgir 1 tab PO DAILY 04/24/18 02/12/21 Allergies Allergy/AdvReac Type Severity Reaction Status Date / Time No Known Allergies Allergy Verified 02/12/21 18:33 Review of Systems Constitutional Constitutional: Denies fever(s) Cardiovascular Cardiovascular: Denies chest pain and Denies dyspnea Respiratory Respiratory: Denies cough and Denies dyspnea Integumentary/Breasts Skin/Breast: Reports erythema Hematologic/Lymphatic Hematologic/Lymphatic: Denies easy bleeding and Denies easy bruising [facility] Medical History Encounter for routine follow-up General counseling and advice on contraceptive management Patient is a currently breast-feeding mother state zaman IUP. JESSICA 12/26/18 Family History Maternal Grandmother Clotting disorder while taking estrogen Stroke Mother Clotting disorder DVT after leg injury while on OCPs. Social History Smoking/Tobacco Use Status: Never Smoking risk assessment performed?: Yes Alcohol Intake: former Drug use: Never Substance use type: does not use current occupation: [employer] worker Do you feel safe at home: Yes Do you feel safe in your relationship?: Yes Female Reproductive History Menstrual control method: none History History 3 Para 2 Hx # Term Pregnancies 2 Multiple births 0 Hx # Pregnancies 0 Ectopic pregnancies 0 AB induced 0 Hx Number of Living Children 2 AB spontaneous 0 Past Pregnancies Del. Date GA/Weeks # Outcome Route Wgt Sex Labor Lgth Anesthes ia Location Prov Complic 04/19/17 41 No Successful vaginal 3543.69 g Female 50 hrs [facility] care 01/03/19 41 No Successful vaginal 4025.632 g Female 10 hrs [facility] Delivery Date: 04/19/17 Spont labor onset day of scheduled IOL for post dates, AROM, used tub, ambulation, long labor but 15 minutes pushing, no stitches. Chiquita Reed Delivery Date: 01/03/19 FOB helped catch baby, good experience. Was going to do a waterbirth but told to get out of tub for lab draw and then no time to get back in. Chiquita Reed Exam Const General: cooperative, healthy appearing, comfortable and no acute distress Orientation: alert and awake [facility] Head: normal to inspection, normocephalic and atraumatic Eyes General: appearance normal, both eyes and all related structures Conjunctivae: conjunctivae normal Neck Neck: normal visual inspection, trachea midline and supple Resp Effort & Inspection: normal respiratory effort and able to speak in complete se ntences Auscultation: clear to auscultation bilaterally Cardio Rate: regular rate Rhythm: regular rhythm Skin General skin exam: erythema Neuro General: patient alert, patient awake, moves all extremities and no focal motor deficits Cognition: normal cognition Speech: speech normal Gait: normal gait Sensory Exam: no sensory deficits noted Extrem General: full ROM and capillary refill normal Knee images: 1. Bilateral lower extremities with diffuse patchy varicose veins. Right leg posterior lateral knee with an area of erythema, induration, firmness. There is no drainage or fluctuance. No true warmth. Diffuse mild discomfort to palpation. Positive Homans' sign. Skin is intact Psych Appearance: grossly normal Mental Status: mental status grossly normal
[2021-02-12 19:26] LABS: Abs Immature Grans 0.03 10^3/uL (0.0-0.06); Absolute Basophil Count 0.03 10^3/uL (0.0-0.2); Absolute Lymphocyte Count 2.12 10^3/uL (1.2-3.4); Absolute Monocyte Count 0.37 10^3/uL (0.1-0.8); Absolute Neutrophil Count 2.74 10^3/uL (1.2-6.7); Basophils % 0.6; Eosinophils % 1.9; HCT 40.5 % (36.0-46.0); HGB 12.9 g/dL (11.2-15.7); Immature Grans % 0.6; Lymphocytes % 39.3; MCH 26.3 pg (27.0-33.0); MCHC 31.9 % (32.0-36.0); MCV 82.7 fL (80-95); MPV 9.2 fL (8.0-11.0); Monocytes % 6.9; Neutrophils % 50.7; Nucleated RBC 0 %; Platelet Count 279 10^3/uL (130-400); RDW 14.1 % (11.7-14.6); RDW-SD 42.2 fL; WBC 5.39 10^3/uL (4.4-10.8)
[2021-02-12] MEDS: Enoxaparin 120 MG/0.8 ML SYR SC (19:27)
[2021-02-12 19:40] LABS: PTT Activated 23.2 sec (21.0-27.5); Prothrombin Time 9.7 sec (9.3-11.0)
[2021-02-12 19:43] LABS: ALT 97 U/L (14-59); AST 51 U/L (15-37); Albumin 3.3 g/dL (3.4-5.0); Alkaline Phosphatase 119 U/L (46-116); Anion Gap 8.9 mmol/L (3-11); BUN 11 mg/dL (7-18); Bilirubin, Total 0.3 mg/dL (0.2-1.0); CO2 27.1 mmol/L (21.0-32.0); CREATININE 0.7 mg/dL (0.55-1.02); Calcium 9.3 mg/dL (8.5-10.1); Chloride 104 mmol/L (98-107); Glucose 94 mg/dL (74-106); Potassium 3.8 mmol/L (3.5-5.1); Sodium 140 mmol/L (136-145); Total Protein 7.5 g/dL (6.4-8.2)
[2021-02-12 20:14] LABS: D-Dimer 982 ng/mlFEU (<500)
== END 2021-02-12 19:40 | disposition home or self-care (01) ==
PROVIDERS: Emergency Provider Physician Assistant; PCP Nurse Practitioner
DX: M79.661 Pain in right lower leg (principal); M79.89 Other specified soft tissue disorders
CPT/HCPCS: 80053; 96372; 99284; 85025; 85379; 85610; 85730; J1650

== ENCOUNTER 2021-02-13 08:46 | Emergency (ER) | payer BC, MEDICAID, SELFPAY ==
--- NOTE | 2021-02-13 08:45 | DI.US_ITS ---
Exam(s) US LOWER EXTREMITY VENOUS RT EXAM: US LOWER EXTREMITY VENOUS RT CLINICAL HISTORY: Post swelling TECHNIQUE: Right lower extremity venous ultrasound performed using grayscale, color-flow, and spectr al Doppler analysis. COMPARISON: No exams were available for comparison FINDINGS: The right common femoral, femoral and popliteal veins demonstrate normal compressibility, augmentatio n, and color Doppler. The posterior tibial veins are patent. The saphenofemoral junction is unremark able. There is no evidence of a Villeda cyst. The soft tissues are unremarkable. There is thrombus se en in a superficial vein in the proximal and lateral calf 3 cm in length. IMPRESSION: 1. No DVT. 2. Superficial thrombophlebitis. DATA REPOSITORY:
--- NOTE | 2021-02-13 08:48 | W.ED.GENAD ---
Discharge Plan Disposition Patient Disposition: HOME Condition: Improving Discharge Details Clinical Impression: Thrombophlebitis Primary Care Provider: Kristyn Lara ED Provider: Murali Adams Home Meds and New Rx's Prescriptions: Continued prenat.vits,nyla,ets-mcpk-pitzn tablet 1 tab PO DAILY RF: 0 Discharge Instructions Instructions: Superficial Thrombophlebitis (ED) Additional Instructions: May use ibuprofen/Advil 600 to 800 mg every 8 hours. Apply warm/moist heat to area to improve blood flow and break up the superficial blood clot. Follow-up with ASSISTANT PROJECT MANAGER as we discussed, please call in the morning for an appointment time for a blood pressure recheck on Sunday or Sunday. Return to the ER for any acute concerns. Avoid any Tylenol until your liver enzymes have been rechecked. Medical Decision Making 30-year-old female who is 9 days , seen in the ER yesterday for right leg pain and swelling with a different diagnosis of superficial thrombophlebitis versus DVT. Labs including a D-dimer of 982 were obtained, case discussed with OB as well as radiology and plan for outpatient return today for ultrasound was made. Patient returns with no new complaints in the interim. She does have periods of probable right lateral superficial thrombophlebitis. Her labs from yesterday noted the elevated D-dimer as well as slight transaminitis which I discussed with her. Ultrasound today: Superficial thrombophlebitis, no DVT. Given elevated blood pressure today of 137/91, urinalysis was obtained with mild contamination, will be cultured, note of urine protein creatinine ratio 0.21. Discussed findings with on-call county attorney, Chiquita Reed. We will have the patient follow-up on Sunday or Sunday for blood pressure recheck as well as reschedule recheck on Sunday. She is stable and appropriate for discharge to home. HPI General Mode of arrival: ambulatory. Date/Time Provider Initiated Documentation: 02/13/21 08:46. Limitations to Documentation: no limitations. Information obtained by: patient. History of Present Illness 30 year old F presents to the emergency department with the chief complaint of 8 days , right leg pain and swelling, described as moderate, Quality is described as dull and constant, and is localized to the right and lower extremity. Patient reports no radiation. and it has been constant. No relieving factors improve symptom(s), No exacerbating factors reported . Related Data Home Medications Medication Instructions Recorded Confirmed prenat.vits,nyla,igt-qhro-resxa 1 tab PO DAILY 04/24/18 02/13/21 Allergies Allergy/AdvReac Type Severity Reaction Status Date / Time No Known Allergies Allergy Verified 02/13/21 09:04 General SEE: 3 Review of Systems Narrative: No other complaint. Breast feeding [facility] Medical History Encounter for routine follow-up General counseling and advice on contraceptive management Patient is a currently breast-feeding mother state zaman IUP. JESSICA 12/26/18 Family History Maternal Grandmother Clotting disorder while taking estrogen Stroke Mother Clotting disorder DVT after leg injury while on OCPs. Social History Smoking/Tobacco Use Status: Never Smoking risk assessment performed?: Yes Alcohol Intake: former Drug use: Never Substance use type: does not use current occupation: [employer] worker Do you feel safe at home: Yes Do you feel safe in your relationship?: Yes Female Reproductive History Menstrual control method: none History History 3 Para 2 Hx # Term Pregnancies 2 Multiple births 0 Hx # Pregnancies 0 Ectopic pregnancies 0 AB induced 0 Hx Number of Living Children 2 AB spontaneous 0 Past Pregnancies Del. Date GA/Weeks # Outcome Route Wgt Sex Labor Lgth Anesthesia Location Prov Compl 04/19/17 41 No Successful vaginal 3543.69 g Female 50 hrs [facility] [facility] in [facility] care 01/03/19 41 No Successful vaginal 4025.632 g Female 10 hrs [facility] Delivery Date: 04/19/17 Spont labor onset day of scheduled IOL for post dates, AROM, used tub, ambulation, long labor but 15 minutes pushing, no stitches. Chiquita Reed Delivery Date: 01/03/19 FOB helped catch baby, good experience. Was going to do a waterbirth but told to get out of tub for lab draw and then no time to get back in. Chiquita Reed Exam Narrative Exam Narrative: GEN: awake, alert, oriented 3. Pleasant, well groomed, interactive. HEAD: Normocephalic, atraumatic EYES: PERRL, EOMI NECK: Full ROM, no NABIL, no menigismus EXT: Full ROM, right lateral/posterior calf with raised, erythematous cord, no direct posterior cord. Normal motor and gait Neuro: Grossly normal neurologic exam, conversant, interactive. Psych: Speech fluent, thoughts congruent, affect normal
[2021-02-13 09:04] VITALS: BP 137/91; PULSE 100; RESP 18; TEMP 36.8; O2SAT 97
[2021-02-13 10:20] VITALS: BP 117/83; PULSE 76; RESP 18; O2SAT 97
[2021-02-13 10:22] LABS: Bilirubin Negative (Negative); Blood Large (Negative); Clarity Sl Cloudy (Clear); Glucose Negative (Negative); Ketones Negative (Negative); Leukocyte Esterase Moderate (Negative); Nitrite Negative (Negative); Urobilinogen 0.2 EU/dL (Up TO 0.2); pH 7.5 (5-8)
[2021-02-13 10:31] LABS: Bacteria Few HPF (Negative); C & S Indicated? Yes; Casts Negative LPF (Negative); Crystals Negative HPF (Negative); Epithelial Cells Few HPF (Negative); Mucus Trace (Negative); RBC 20-50 HPF (0-2)
[2021-02-13 11:18] LABS: PROTEIN 11.6 mg/dL
[2021-02-13 11:20] LABS: COMMENT (LAB VIEW ONLY) 53.35 mg/dL; Prot/Crea Ur Ratio 0.21
[2021-02-13 11:43] VITALS: RESP 18
== END 2021-02-13 11:43 | disposition home or self-care (01) ==
PROVIDERS: Emergency Provider Emergency Medicine; PCP Nurse Practitioner
DX: I80.01 Phlebitis and thrombophlebitis of superficial vessels of right lower extremity (principal)
CPT/HCPCS: 99284; 81003; 81015; 82565; 84156; 87086; 93971; 99283

== ENCOUNTER 2021-02-18 03:31 | Outpatient (CLI) | payer BC, MEDICAID, SELFPAY ==
[2021-02-18 16:42] LABS: ALT 172 U/L (14-59); AST 85 U/L (15-37); Albumin 3.7 g/dL (3.4-5.0); Alkaline Phosphatase 129 U/L (46-116); Anion Gap 9.7 mmol/L (3-11); BUN 11 mg/dL (7-18); Bilirubin, Total 0.4 mg/dL (0.2-1.0); CO2 27.3 mmol/L (21.0-32.0); CREATININE 0.8 mg/dL (0.55-1.02); Calcium 9.3 mg/dL (8.5-10.1); Chloride 103 mmol/L (98-107); Glucose 85 mg/dL (74-106); Potassium 3.8 mmol/L (3.5-5.1); Sodium 140 mmol/L (136-145); Total Protein 7.4 g/dL (6.4-8.2)
== END 2021-02-18 03:32 | disposition home or self-care (01) ==
LOC: LBO 03:32
PROVIDERS: PCP Nurse Practitioner; Visit Provider Advanced Practice Midwife
DX: R74.8 Abnormal levels of other serum enzymes (principal); Z39.2 Encounter for routine postpartum follow-up
CPT/HCPCS: 36415; 80053

== ENCOUNTER 2021-02-25 03:29 | Outpatient (CLI) | payer BC, MEDICAID, SELFPAY ==
[2021-02-25 16:08] LABS: ALT 275 U/L (14-59); AST 124 U/L (15-37); Alkaline Phosphatase 129 U/L (46-116); Anion Gap 9.7 mmol/L (3-11); BUN 9 mg/dL (7-18); Bilirubin, Total 0.5 mg/dL (0.2-1.0); CO2 27.3 mmol/L (21.0-32.0); CREATININE 0.7 mg/dL (0.55-1.02); Calcium 9.3 mg/dL (8.5-10.1); Chloride 105 mmol/L (98-107); Glucose 84 mg/dL (74-106); Potassium 3.8 mmol/L (3.5-5.1); Sodium 142 mmol/L (136-145); Total Protein 7.5 g/dL (6.4-8.2)
== END 2021-02-25 03:30 | disposition home or self-care (01) ==
LOC: LBO 03:29
PROVIDERS: PCP Nurse Practitioner; Visit Provider Advanced Practice Midwife
DX: R74.8 Abnormal levels of other serum enzymes (principal)
CPT/HCPCS: 36415; 80053

== ENCOUNTER 2021-03-11 08:21 | Outpatient (REF) | payer BC, MEDICAID, SELFPAY ==
[2021-03-11 13:54] LABS: ALT 281 U/L (14-59); AST 138 U/L (15-37); Albumin 4.1 g/dL (3.4-5.0); Alkaline Phosphatase 137 U/L (46-116); Bilirubin, Direct 0.1 mg/dL (0.0-0.2); Bilirubin, Total 0.6 mg/dL (0.2-1.0); Total Protein 7.4 g/dL (6.4-8.2)
== END 2021-03-11 08:22 | disposition home or self-care (01) ==
LOC: NCHCN 08:21
PROVIDERS: PCP Nurse Practitioner; Visit Provider Nurse Practitioner
DX: R74.8 Abnormal levels of other serum enzymes (principal)
CPT/HCPCS: 80076

== ENCOUNTER 2021-08-02 02:13 | Outpatient (CLI) | payer BC, SELFPAY ==
[2021-08-02 17:15] LABS: ALT 44 U/L (14-59); AST 29 U/L (15-37); Albumin 4.1 g/dL (3.4-5.0); Alkaline Phosphatase 102 U/L (46-116); Bilirubin, Total 0.4 mg/dL (0.2-1.0); Total Protein 7.4 g/dL (6.4-8.2)
[2021-08-02 17:24] LABS: Bilirubin, Direct 0.1 mg/dL (0.0-0.2)
== END 2021-08-02 02:14 | disposition home or self-care (01) ==
LOC: LBO 02:13
PROVIDERS: PCP Nurse Practitioner; Visit Provider Physician Assistant Medical
DX: R74.8 Abnormal levels of other serum enzymes (principal)
CPT/HCPCS: 36415; 80076

== ENCOUNTER 2021-12-02 01:24 | Outpatient (CLI) | payer BC, SELFPAY ==
[2021-12-02 09:37] LABS: ALT 29 U/L (14-59); AST 20 U/L (15-37); Albumin 3.9 g/dL (3.4-5.0); Alkaline Phosphatase 109 U/L (46-116); Bilirubin, Direct 0.1 mg/dL (0.0-0.2); Bilirubin, Total 0.4 mg/dL (0.2-1.0); Total Protein 7.5 g/dL (6.4-8.2)
== END 2021-12-02 01:25 | disposition home or self-care (01) ==
LOC: LBO 01:24
PROVIDERS: Internal Medicine Gastroenterology; PCP Nurse Practitioner; Visit Provider Physician Assistant Medical
DX: R74.8 Abnormal levels of other serum enzymes (principal)
CPT/HCPCS: 36415; 80076

== ENCOUNTER 2023-01-30 03:20 | Outpatient (CLI) | payer BC, MEDICAID, SELFPAY ==
[2023-01-30 16:02] LABS: Abs Immature Grans 0.04 10^3/uL (0.0-0.06); Absolute Basophil Count 0.02 10^3/uL (0.0-0.2); Absolute Eosinophil Count 0.06 10^3/uL (0.0-0.7); Absolute Lymphocyte Count 1.93 10^3/uL (1.2-3.4); Absolute Monocyte Count 0.37 10^3/uL (0.1-0.8); Absolute Neutrophil Count 3.24 10^3/uL (1.2-6.7); Basophils % 0.4; Eosinophils % 1.1; HCT 40.4 % (36.0-46.0); HGB 13.3 g/dL (11.2-15.7); Immature Grans % 0.7; Lymphocytes % 34.1; MCH 26.2 pg (27.0-33.0); MCHC 32.9 % (32.0-36.0); MCV 80 fL (80-95); MPV 8.9 fL (8.0-11.0); Monocytes % 6.5; Neutrophils % 57.2; Platelet Count 239 10^3/uL (130-400); RBC 5.08 10^6/uL (3.93-5.22); RDW 13.2 % (11.7-14.6); WBC 5.66 10^3/uL (4.4-10.8)
[2023-01-30 16:54] LABS: Glucose,1 Hr (Glucola) 100 mg/dL (80-140)
[2023-01-31 17:40] LABS: ALT 19 U/L (14-59); AST 12 U/L (15-37); Albumin 3.4 g/dL (3.4-5.0); Alkaline Phosphatase 76 U/L (46-116); Anion Gap 13.6 mmol/L (3-11); BUN 6 mg/dL (7-18); Bilirubin, Total 0.3 mg/dL (0.2-1.0); CO2 22.4 mmol/L (21.0-32.0); CREATININE 0.6 mg/dL (0.55-1.02); Chloride 103 mmol/L (98-107); Estimated GFR 123.76 (mL/min/1.73m2); Glucose 97 mg/dL (74-106); Potassium 3.3 mmol/L (3.5-5.1); Sodium 139 mmol/L (136-145); Total Protein 7.2 g/dL (6.4-8.2)
[2023-02-01 09:11] LABS: Hepatitis B Surface Ag Negative (Negative)
[2023-02-01 09:53] LABS: Hepatitis C Ab w Rflx HCV PCR Negative (Negative)
[2023-02-01 10:17] LABS: HIV-1/2 Ag & Ab Screen Negative (Negative)
[2023-02-01 10:21] LABS: Rubella IgG Ab (UVM) Positive (See Note); Varicella IgG Antibody Positive (See Note)
[2023-02-01 22:33] LABS: Syphilis IgG w/Reflex Nonreactive (Nonreactive)
== END 2023-01-30 03:21 | disposition home or self-care (01) ==
PROVIDERS: PCP Nurse Practitioner Family; Visit Provider Advanced Practice Midwife
DX: Z34.91 Encounter for supervision of normal pregnancy, unspecified, first trimester; Z68.33 Body mass index [BMI] 33.0-33.9, adult
CPT/HCPCS: 36415; 80053; 82950; 86787; 86803; 86850; 86900; 86901; 87340; 87389; 85025; 86762; 86780

== ENCOUNTER 2023-01-30 14:09 | Outpatient (REF) | payer BC, MEDICAID, SELFPAY ==
--- NOTE | 2023-01-30 15:00 | PAPFT_PTH ---
PATIENT: Sheyla Acevedo LOC: [facility] U#:[id number] AGE/SX: 32/F ROOM: RE01/30/[address]: Analilia Daniel : 1990 BED: DIS: 01/30/2023 SPEC #: [id number] RECD: 01/30/23 17:28 STATUS: GEE REFernandez #: [id number] MARIANA: 01/30/23 15:[address]: Analilia Daniel DEPT: [facility] Cytology RECD BY: Nora Lackey ENTERED: 01/30/23 17:28 SP TYPE: PAPFT OTHR DR: TOSHIA NOLASCO NP Tissues: 1 - CX/ENDOCX FOR PAP SMEARS Procedures: PAP THIN PREP/UVM Screening HPV DNA PROBE Comments: [id number]
[2023-01-30 17:00] LABS: *AMPHETAMINES SCREEN URINE Negative (Negative); *BARBITURATES SCREEN URINE Negative (Negative); *BENZODIAZEPINES SCREEN URINE Negative (Negative); Cannabinoids THC Negative (Negative); Cocaine Screen,Urine Negative (Negative); METHADONE URINE SCREEN Negative (Negative); OPIATES URINE SCREEN Negative (Negative)
[2023-01-30 17:08] LABS: Tricyclic Antidepressants Negative (Negative)
[2023-02-01 12:59] LABS: Chlamydia Result Negative (Negative); GC Result Negative (Negative)
[2023-02-06 18:55] LABS: Buprenorphine Negative ng/mL (Cutoff: 5.0); Norbuprenorphine Negative ng/mL (Cutoff: 2.5)
== END 2023-01-30 14:10 | disposition home or self-care (01) ==
LOC: LBN 14:09
PROVIDERS: PCP Nurse Practitioner Family; Visit Provider Advanced Practice Midwife
DX: Z34.91 Encounter for supervision of normal pregnancy, unspecified, first trimester (principal); Z3A.11 11 weeks gestation of pregnancy; Z11.3 Encounter for screening for infections with a predominantly sexual mode of transmission; Z12.4 Encounter for screening for malignant neoplasm of cervix; Z11.51 Encounter for screening for human papillomavirus (HPV)
CPT/HCPCS: 80307; 80348; 87491; 87591; 88142; 87086; 87624

== ENCOUNTER 2023-05-25 03:21 | Outpatient (CLI) | payer BC, MEDICAID, SELFPAY ==
[2023-05-25 16:34] LABS: HCT 34.7 % (36.0-46.0); HGB 11.4 g/dL (11.2-15.7); MCH 27.3 pg (27.0-33.0); MCHC 32.9 % (32.0-36.0); MCV 83 fL (80-95); MPV 9.2 fL (8.0-11.0); Platelet Count 199 10^3/uL (130-400); RBC 4.18 10^6/uL (3.93-5.22); RDW-SD 41.9 fL
[2023-05-25 16:53] LABS: Glucose,1 Hr (Glucola) 104 mg/dL (80-140)
== END 2023-05-25 03:22 | disposition home or self-care (01) ==
LOC: LBO 03:21
PROVIDERS: PCP Nurse Practitioner Family; Visit Provider Advanced Practice Midwife
DX: Z34.93 Encounter for supervision of normal pregnancy, unspecified, third trimester (principal)
CPT/HCPCS: 36415; 82950; 85027

== ENCOUNTER → 2023-06-13 00:38 | Outpatient (CLI) | payer BC, MEDICAID, SELFPAY ==
--- NOTE | 2023-06-13 06:30 | DI.US_ITS ---
Exam(s) US OB MILO WEIGHT EXAM: US OB MILO WEIGHT CLINICAL HISTORY: Fluid, weight and location/size of fibroid,D25.9,O34.10. TECHNIQUE: Transabdominal obstetrical ultrasound performed. COMPARISON: US POCUS EXAM from 01/11/2023 US US OB 2-3 TRIMESTER from 03/28/2023 US US OB F/U FACIAL/LVOT/RVOT from 04/26/2023 FINDINGS:: Number of fetuses: One. position: Breech Placental location: Posterior. No evidence of previa. Anterior fibroid noted 4.6 x 3.5 x 4.5 cm. BIOMETRIC DATA: BPD: 376mm = 30+ 3 weeks HC: 301mm = 33+2 weeks AC: 282mm = 32+2 weeks FL: 61 mm = 31+4 weeks EFW: 1874 Gms = 87% Composite Age: 31+ 6 weeks JESSICA: 09 August 2023 Heart Rate: Measurements not obtained. Amniotic fluid index: 11.7 cm. Amount of fluid is visually within normal limits. IMPRESSION: size and weight are within the expected range. DATA REPOSITORY:
== END ==
PROVIDERS: PCP Nurse Practitioner Family; Visit Provider Advanced Practice Midwife
DX: D25.9 Leiomyoma of uterus, unspecified (principal); O34.13 Maternal care for benign tumor of corpus uteri, third trimester
CPT/HCPCS: 76816

== ENCOUNTER → 2023-07-26 00:54 | Outpatient (CLI) | payer BC, MEDICAID, SELFPAY ==
--- NOTE | 2023-07-26 14:23 | DI.US_ITS ---
Exam(s) US OB MILO WEIGHT EXAM: US OB MILO WEIGHT CLINICAL HISTORY: weight and MILO, follow up Fibroid,D25.9,O09.299,O34.10. TECHNIQUE: Transabdominal obstetrical ultrasound performed. COMPARISON: US US OB MILO WEIGHT from 06/13/2023 FINDINGS:: Number of fetuses: One. position: Vertex. Placental location: Anterior. No evidence of previa. Fibroid not identified on today's exam. BIOMETRIC DATA: BPD: 88mm = 35+5 weeks HC: 333mm = 38+ 1 weeks AC: 119mm = 38+ 4 weeks FL: 347 mm = 38+ 0 weeks EFW: 3384 Gms = 88% Composite Age: 37+ 4 weeks JESSICA: 12 August 2023 Heart Rate: 159BPM Amniotic fluid index: 11.5 cm. Amount of fluid is visually within normal limits. IMPRESSION: size and weight are within the expected range. DATA REPOSITORY:
== END ==
PROVIDERS: PCP Nurse Practitioner Family; Visit Provider Advanced Practice Midwife
DX: O09.293 Supervision of pregnancy with other poor reproductive or obstetric history, third trimester (principal); Z3A.38 38 weeks gestation of pregnancy
CPT/HCPCS: 76816

== ENCOUNTER 2023-07-26 10:51 | Outpatient (REF) | payer BC, MEDICAID, SELFPAY | END 2023-07-26 10:52 | disposition home or self-care (01) | LOC: LBN 10:51 | PROVIDERS: PCP Nurse Practitioner Family; Visit Provider Advanced Practice Midwife | DX: Z34.93 Encounter for supervision of normal pregnancy, unspecified, third trimester (principal); Z36.85 Encounter for antenatal screening for Streptococcus B; Z3A.36 36 weeks gestation of pregnancy | CPT/HCPCS: 87081 ==

== ENCOUNTER 2023-08-24 01:16 | Inpatient (IN) | payer MEDICAID, SELFPAY ==
[2023-08-24] VITALS (17 sets, daily range): BP systolic 101–125; BP diastolic 57–80; PULSE 79–119; RESP 16–18; TEMP 36.2–36.7; O2SAT 98–99
--- NOTE | 2023-08-24 01:43 | HPE_ITS ---
Date of service: 08/24/23 Time of Service: 01:43 Assessment and Plan Assessment and plan (1) Normal labor: Status: Acute Assessment and plan: 1. Admit, CBC and Type and screen 2. Prefers non-interventional labor, will hold IV start unless indicated 3. Declines tub on admission 4. Expect NVD. OB-HPI Labor/Delivery History of Present Illness Reason for Visit: Labor Chief Complaint: Uterine Contractions. JESSICA Calculator Estimated Delivery Date Method Current WG Current Estimate 08/19/23 LMP (Certain) 40w 5d Other Estimates 08/20/23 Ultrasound #1 40w 4d Comments: Sheyla and her , Paul, present with onset of labor at 11pm 08/23/23. Denies ROM or show. Baby has been active. On arrival posterior cervix, soft. Regular contractions. History of Present Expected Delivery Route/Plan - CNM FOB - Paul Acevedo (4th baby together) BG - name is a surprise GBS negative Would like access to the tub and/or shower, doesn't want IV Specific Issues/Plan 1. BMI 33- early LXI=802 2. Varicosities - Phlebectomy at [facility] [place] 3. Hx of HTN and elevated liver enzymes - ASA daily, CMP at IOB blood draw. 4. Family hx of pulmonary embolism- mother (while taking estrogen). Consult with MD, thrombophilia panel not indicated. 5. Declines serum genetic testing 6. Possible succenturiate lobe on placenta VS uterine contraction or fibroid. 6a. Fibroid in lower uterine segment, repeat US 30 wks- no evidence of succinturiate lobe, anterior fibroid 4.9 x 5.8 cms. 6a. Growth US 07/26/23, 88%ile , MILO -11 7. Declines RSV vaccine Assessment: History Reviewed & Current Review of Systems All systems reviewed & are unremarkable except as noted in HPI and below (regular uterine contractions) PFSH All Active Problems (Updated 08/24/23 @ 01:51 by Analilia Gregory CNM) Normal labor (Acute) Uterine fibroid complicating care, baby not yet delivered (Acute) History of pre-eclampsia in prior , currently (Acute) BMI 33.0-33.9,adult (Acute) (Acute) Leg pain (Acute) Seasonal allergies (Acute) Varicose veins of right leg with edema (Acute) Consult at [facility] 12/2019 Medical History Thrombophlebitis General counseling and advice on contraceptive management Patient is a currently breast-feeding mother state Surgical History Status post phlebectomy stripping of greater saphenous vein Family History Maternal Grandmother Clotting disorder Stroke Mother Clotting disorder DVT after leg injury while on OCPs. caused a pulmonary embolism Pulmonary embolism while on estrogen Phlebitis Paternal Grandmother Cancer colon Social History Smoking/Tobacco Use Status: Never Smoking risk assessment performed?: Yes Alcohol Intake: former Drug use: Never Substance use type: does not use current occupation: [employer] worker Do you feel safe at home: Yes Do you feel safe in your relationship?: Yes Female Reproductive History Menstrual control method: none History History 4 Para 3 Hx # Term Pregnancies 3 Multiple births 0 Hx # Pregnancies 0 Ectopic pregnancies 0 AB induced 0 Hx Number of Living Children 3 AB spontaneous 0 Past Pregnancies Del. Date GA/Weeks # Preg Succ Route Wgt Sex Labor Lgth Anesth esia Location [facility] 04/19/17 41 No vaginal 7 lb 13 oz Female 50 hrs [facility] in [place] care 01/03/19 41 No vaginal 8 lb 14 oz Female 10 hrs Rakan macdonald CNM 02/05/21 40 No vaginal 7 lb 4 oz Female 3hrs 22min DAKOTA Smith Delivery Date: 04/19/17 Last Updated by: Analilia Daniel CNM Spont labor onset day of scheduled IOL for post dates, AROM, used tub, ambulation, long labor but 15 minutes pushing, no stitches. Laura Delivery Date: 01/03/19 Last Updated by: Analilia Daniel CNM FOB helped catch baby, good experience. Was going to do a waterbirth but told to get out of tub for lab draw and then no time to get back in. Bethanie Delivery Date: 02/05/21 Last Updated by: DAKOTA Yap Post hypertension and elevated liver enzymes 1 week post Meds Allergies and Home Medications Allergies Allergy/AdvReac Type Severity Reaction Status Date / Time No Known Allergies Allergy Verified 08/24/23 01:48 Home Medications Medication Instructions Recorded Confirmed Type prenat.vits,nyla,abx-wzfk-cqycg 1 tab PO DAILY 04/24/18 08/22/23 History aspirin 81 mg chewable tablet 81 mg PO DAILY 02/26/23 08/22/23 History ondansetron 4 mg disintegrating 4 mg PO Q8H PRN nausea and 06/28/23 08/22/23 Rx tablet vomiting #30 tabs Exam Physical Exam Vital signs: Pulse BP 107 H 116/76 08/24/23 01:37 08/24/23 01:37 Vital Signs Reviewed: Yes Constitutional Constitutional: no acute distress (working well with contractions) Detailed Labor and Delivery Exam Dilation: 7 Effacement (%): 80 station: -1 Position: LAURE Cervix position: posterior Consistency: soft Juarez Score: Cervical Points Exam 0 1 2 3 Dilation Closed 1-2cm 3-4 cm 5-6cm Effacement 0-30% 40-50% 60-70% 80% Consistency Firm Medium Soft Station -3 -2 -1,0 +1,+2 Position Posterior Mid Anterior JUAREZ Score(Cervical Ripeness Score): 10 Contraction Frequency(min): 2-3 Contraction Duration(sec): 60-90 Contraction Intensity: Strong Fetus A Heart Rate Baseline: 140 Monitor Accelerations: Present Monitor Decelerations: None Variability: Moderate (6-25 BPM) Categories: Category I HEENT Exam HEENT Exam: Normal Neck Exam Neck Exam: Normal (normal visual inspection) Chest/Brest/Axilla Exam Chest Exam: Normal Breast Exam Breast Exam: Not Done Respiratory Exam Respiratory Exam: Normal Cardiovascular Exam Cardiovascular Exam: Normal Abdominal Exam Abdominal Exam: Normal (gravid uterus, size >dates) Rectal Exam Rectal Exam: Not Done Exam Exam: Normal Extremities Exam Extremities Exam: Normal Back/Spine/Pelvis Exam Back Exam: Normal Pelvis Adequate: Yes Skin Exam Skin Exam: Normal Neurological Exam Neurological Exam: Normal Psychiatric Exam Psychiatric Exam: Normal Results Results Group Beta Strep: Negative Blood Type: A+ Rubella Status: Immune Varicella Immunity: Immune Lab Results: GC CT neg/HIV neg/ Syphilis neg/Hep B & C neg/ early 1 hour 100 and 1 hour gtt at 28 weeks 104 Risk Assessment Risk for Shoulder Dystocia Historical/Initial OB: POSITIVE FOR: Pre- BMI>30; NEGATIVE FOR: Pelvic Abnormality, Previous Shoulder Dystocia or Previous Macrosomia 36 Weeks: NEGATIVE FOR: Current Gestational DM, EFW>4500gms or Maternal Weight Gain>40lbs 40 Weeks: NEGATIVE FOR: EFW> 4500 gms, Maternal Weight Gain >40lb or Post Dates Increased Risk?: No Delivery Plan @ 36wks: proven to 8'14 Delivery Plan @ 40 wks: NVD expected. Risk for Pre-Eclampsia Yes, if one or more: POSTIVE FOR: Hx Pre-E/Gest HTN; NEGATIVE FOR: Chronic HTN, Multiple Gestation, Pre-gestational DM, Renal Disease, Systemic Lupus or APA Syndrome Yes, if 2 or more: POSITIVE FOR: BMI>30 Risk for Post- Hemorrhage Initial: NEGATIVE FOR: Multiple Gestation, Previous PPH, Known Clotting Deficiency (pt had negative thrombophilia w/up twice d/t fam hx, (@[facility] Grand Multiparity or Anticoagulation 36 Weeks: NEGATIVE FOR: Anemia, hgb<10, Low platelets(thrombocytopenia), Gestational HTN or Pre-E, Polyhydraminios or EFW>4500gms 40 Weeks: POSITIVE FOR: Gestation HTN or Pre-E (History of PP HTN, no complications this ); NEGATIVE FOR: Anemia, hgb<10, Low platelets (thrombocytopenia), Polyhydraminios or EFW>4500gms Counseled re: Active Management: Yes Date/Initials: 08/24/23 Risks Reviewed Risks Reviewed Upon Admission: No
[2023-08-24 01:50] LABS: HCT 38.8 % (36.0-46.0); MCH 27.4 pg (27.0-33.0); MCHC 33.5 % (32.0-36.0); MCV 82 fL (80-95); MPV 9.8 fL (8.0-11.0); Platelet Count 205 10^3/uL (130-400); RBC 4.75 10^6/uL (3.93-5.22); RDW 14.3 % (11.7-14.6); RDW-SD 41.8 fL; WBC 9.05 10^3/uL (4.4-10.8)
[2023-08-24 02:20] LABS: ALT 17 U/L (14-59); AST 18 U/L (15-37); Albumin 2.8 g/dL (3.4-5.0); Alkaline Phosphatase 293 U/L (46-116); Anion Gap 14.1 mmol/L (3-11); BUN 6 mg/dL (7-18); Bilirubin, Total 0.4 mg/dL (0.2-1.0); CO2 21.9 mmol/L (21.0-32.0); CREATININE 0.6 mg/dL (0.55-1.02); Calcium 8.8 mg/dL (8.5-10.1); Chloride 103 mmol/L (98-107); Estimated GFR 123.76 (mL/min/1.73m2); Glucose 103 mg/dL (74-106); Potassium 3.6 mmol/L (3.5-5.1); Sodium 139 mmol/L (136-145); Total Protein 6.7 g/dL (6.4-8.2)
--- NOTE | 2023-08-24 03:48 | W.OBDELIVERY ---
Date of service: 08/24/23 Time of Service: 03:48 OB Labor/ Delivery Information Baby A Delivery Delivery Method: Spontaneaous Presentation: Cephalic Cephalic Position: Vertex Vertex Position: Left Occipital Posterior Cord Description-Baby A: 3 Vessels, Nuchal Cord (X 1 loose reduced over body at delivery) and Clamped/Cut (after 5 minutes of delayed cord clamping) Amniotic Fluid: Clear Estimated Blood Loss: 200 Delivery Outcome: Liveborn Infant Complications: none noted at Providers Nurse Pile Driving Supervisor: Analilia Gregory Nurse: Eloise Pham Nurse: Odalis Mario Labor/Delivery Information Number of Babies in Womb: 1 Steroids Given: None Reason Steroids Not Administered: N/A Group Beta Strep: Negative Antibiotics Administered: No Rubella Status: Immune Blood Type: A+ Varicella Immunity: Immune Maternal Complications: None Shoulder Dystocia: No Note: Sheyla progressed well with her labor and FHR was WNL throughout. She had involuntary urge to push at 0311. Second stage huddle was held and deemed low risk for SD, PPH. She declined active management of third stage. She pushed effectively and delivered a live female into her husbands, Paul, sarbjit at 0326. He brought the baby to Sheyla's abdomen for skin to skin. Positive family bonding noted. She had had SROM at 0321 of clear fluid. Placenta delivered at 0336, intact. Fundus was firm immediately to U-1 but slightly to the right. She will be encouraged to void in the next hour. Perineum and vagina inspected and found to be intact. EBL 200cc. Sponge and instrument count are correct. Sheyla plans to breast feed her daughter. Expect 24-36 hour PP stay. [facility] Stages of Labor Onset of Labor Date: 08/23/23 Onset of Labor Time: 18:00 Complete Dilatation Date: 08/24/23 Complete Dilatation Time: 03:11 Labor - Stage 1 Duration: 9 hours and 11 minutes ROM Baby A: 08/24/23 ROM Baby A: 03:21 ROM Total Time- Baby A: [id number] Infant Delivery Date-Baby A: 08/24/23 Delivery Time-Baby A: 03:26 Labor Stage 2 Duration: 15 minutes Placenta Delivery Date-Baby A: 08/24/23 Placenta Delivery Time-Baby A: 03:36 Labor-Stage 3 Duration: 10 minutes Total Length of Labor-Baby A: 9 hours and 26 minutes Placenta Cultured: No Placenta Status: Delivered Baby A Gender: Female Gestational Status: Term (39-41.6 wks) Gestational Age in Weeks/Days: 40 Weeks and 4 Days Length-Baby A: 21 in Score-1 Minute Interval(Baby A) Heart Rate-1 minute: 100 BPM or Greater Respiratory Effort- 1 minute: Slow Respiration/Weak Cry Muscle Tone-1 minute: Active Movement Reflex Response-1 minute: Prompt Response Color-1 minute: Bluish Hands or Feet Total Score-1 minute: 8 Score-5 Minute Interval(Baby A) Heart Rate- 5 minute: 100 BPM or Greater Respiratory Effort-5 minute: Spontaneous/Strong Cry Muscle Tone-5 minute: Active Movement Reflex Response-5 minute: Prompt Response Color-5 minute: Bluish Hands or Feet Total Score- 5 minute: 9
[2023-08-24] MEDS: Acetaminophen 325 MG TAB 650 MG PO ×3 (05:32→21:20)
[2023-08-24] MEDS: Ibuprofen 600 MG TAB PO ×3 (05:32→21:20)
[2023-08-24] MEDS: Docusate Sodium 100 MG CAP PO (11:26)
--- NOTE | 2023-08-25 08:38 | OBPPV_ITS ---
Date of service: 08/25/23 Time of Service: 08:38 Assessment and Plan Assessment and plan (1) Term delivered: Status: Acute Assessment and plan: A: PPD#1, nml recovery going well, P: Discharge today at pt request Vasectomy is planned, pt declines interim BCM Written instructions reviewed and given to pt F/up at 2 & 6 wks (2) Care and examination of lactating mother: Status: Acute Subjective Subjective Patient comments: No complaints, Pain well controlled, Tolerating diet and Flatus present Patient's Mood: happy Surveyor baby status: Nursing well, Rooming in and Strong Bonding Observed feeding status: Exclusively breast feeding Exam Physical Exam Vital signs: Temp Pulse Resp BP Pulse Ox 97.4 F L 119 H 18 120/72 99 08/24/23 20:00 08/24/23 20:00 08/24/23 20:00 08/24/23 20:00 08/24/23 18:38 Vital Signs Reviewed: Yes Constitutional Constitutional: no acute distress and cooperative HEENT Exam HEENT Exam: Normal Neck Exam Neck Exam: Normal Breast Exam Bilateral: Breast Exam: Normal and Soft Nipple Exam: Normal and Uninjured Respiratory Exam Respiratory Exam: Normal Cardiovascular Exam Cardiovascular Exam: Normal Abdominal Exam Abdomen: Other (soft, nontender) Fundal Exam Fundus: Below Umbilicus and Firm Rectal Exam Rectal Exam: Not Done Exam Perineum: Intact and Normal Extremities Exam Extremity Exam: Normal, Full ROM and Warm to Touch Back/Spine/Pelvis Exam Back Exam: Normal Skin Exam Skin Exam: Normal Neurological Exam Neurological Exam: Normal Psychiatric Exam Psychiatric Exam: Normal Results Hemoglobin/Hematocrit: Hgb 13.0 g/dL (11.2-15.7) 08/24/23 01:41 Hct 38.8 % (36.0-46.0) 08/24/23 01:41
--- NOTE | 2023-08-25 09:21 | DSE_ITS ---
Date of service: 08/25/23 Time of Service: 09:21 DS: Diagnosis Discharge Diagnosis (1) Term delivered: Status: Acute (2) Care and examination of lactating mother: Status: Acute Discharge Plan Disposition Patient Disposition: Home Condition: Good Discharge Details Reason For Visit: Labor at term Admit Date/Time: 08/24/23 01:16 Admit Provider: Analilia Gregory Attending Provider: Analilia Gregory Primary Care Provider: TOSHIA NOLASCO Hospital Course Hospital Course: , nml course, desires discharge at 24 hours PP Home Meds and New Rx's Prescriptions: No Action prenat.vits,nyla,[id number] tablet 1 tab PO DAILY Discharge Instructions Additional Instructions: Please keep your 2 and 6 week appointments with your car pre cooler. If you wish to convert the 2 wk appt to a telehealth appt please call [facility] prior to the appt date. Call for any and all concerns. Stand Alone Forms: BC Instructions, BC Post Vaginal Deliver Activity:: Activity as Tolerated Equipment/Supplies:: No Equipment Needed Diet:: Normal Diet OB:DS Summary Summary Vaginal Delivery Method: Spontaneaous Episiotomy Description: None Laceration Description: None Laceration Extension: N/A Contraception Discussed Contraception Discussed: Yes Contraceptive Plan: Foam/Condoms and Vasectomy, [place] Gender-Baby A: Female Status at Discharge Functional status at discharge: independent ambulation Overall status at discharge: patient is progressing back to baseline Mental Status: mental status grossly normal Speech and Movement: speech and movement normal and speech clear Mood: congruent mood Affect: normal affect Quality:SDOH Health Related Social Needs: No Data to Display Exam Physical Exam Vital signs: Temp Pulse Resp BP Pulse Ox 97.4 F L 119 H 18 120/72 99 08/24/23 20:00 08/24/23 20:00 08/24/23 20:00 08/24/23 20:00 08/24/23 18:38 Constitutional Constitutional: no acute distress and cooperative HEENT Exam HEENT Exam: Normal Neck Exam Neck Exam: Normal Breast Exam Bilateral: Breast Exam: Normal and Soft Respiratory Exam Respiratory Exam: Normal Cardiovascular Exam Cardiovascular Exam: Normal Abdominal Exam Abdomen: Other (soft, nontender) Fundal Exam Fundus: Below Umbilicus and Firm Rectal Exam Rectal Exam: Not Done Exam Perineum: Intact and Normal Extremities Exam Extremity Exam: Normal, Full ROM and Warm to Touch Back/Spine/Pelvis Exam Back Exam: Normal Skin Exam Skin Exam: Normal Neurological Exam Neurological Exam: Normal Psychiatric Exam Psychiatric Exam: Normal PFSH All Active Problems (Updated 08/25/23 @ 08:37 by Franchesca Reed) Care and examination of lactating mother (Acute) Term delivered (Acute) BMI 33.0-33.9,adult (Acute) Seasonal allergies (Acute) 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 caused a pulmonary embolism Pulmonary embolism while on estrogen Phlebitis Paternal Grandmother Cancer colon Social History Smoking/Tobacco Use Status: Never Smoking risk assessment performed?: Yes Alcohol Intake: never Drug use: Never Substance use type: does not use Housing: house current occupation: [employer] worker Do you feel safe at home: Yes Do you feel safe in your relationship?: Yes Female Reproductive History Menstrual control method: none History History 4 Para 3 Hx # Term Pregnancies 3 Multiple births 0 Hx # Pregnancies 0 Ectopic pregnancies 0 AB induced 0 Hx Number of Living Children 3 AB spontaneous 0 Past Pregnancies Del. Date GA/Weeks # Preg Succ Route Wgt Sex Labor Lgth Anesth esia Location Prov Complic 04/19/17 41 No vaginal 7 lb 13 oz Female 50 hrs [facility] [place] 01/03/19 41 No vaginal 8 lb 14 oz [facility] No vaginal 7 lb 4 oz Female 3hrs 22min [place] Delivery Date: 04/19/17 Last Updated by: Analilia Daniel CNM Spont labor onset day of scheduled IOL for post dates, AROM, used tub, ambulation, long labor but 15 minutes pushing, no stitches. Laura Delivery Date: 01/03/19 Last Updated by: Analilia Daniel CNM FOB helped catch baby, good experience. Was going to do a waterbirth but told to get out of tub for lab draw and then no time to get back in. [place] Delivery Date: 02/05/21 Last Updated by: Analilia Daniel CNM [place] Post hypertension and elevated liver enzymes 1 week post DS: Data Vitals/I&O Vitals and I&O: Vital Signs Temperature 97.4 F L 08/24/23 20:00 Temperature Source Oral 08/24/23 20:00 Pulse 119 H 08/24/23 20:00 Pulse Rhythm Regular 08/24/23 20:00 Respiratory Rate 18 08/24/23 20:00 Blood Pressure 120/72 08/24/23 20:00 Blood Pressure Mean 88 08/24/23 20:00 Pulse Oximetry 99 08/24/23 18:38 Oxygen Delivery Method Room Air 08/24/23 01:36 Oxygen Flow Rate 0 08/24/23 01:36 Pain Level 4 08/24/23 21:20 Intake & Output 08/24/23 08/24/23 08/25/23 11:59 23:59 11:59 Output Total 500 / 500 Balance -500 / -500 Weight 4.43 oz Output: Urine 500 / 500 Other: Urine Color Yellow Pale Urine Appearance Clear Comment voided in toilet, unable to quantify amount
[2023-08-25 10:02] VITALS: BP 118/64; PULSE 88; RESP 18; TEMP 36.4
== END 2023-08-25 09:50 | disposition home or self-care (01) | DRG 807 ==
PROVIDERS: Admitting Provider Advanced Practice Midwife; PCP Nurse Practitioner Family; Visit Provider Advanced Practice Midwife
DX: O34.13 Maternal care for benign tumor of corpus uteri, third trimester (principal); Z37.0 Single live birth; Z3A.40 40 weeks gestation of pregnancy; O69.81X0 Labor and delivery complicated by cord around neck, without compression, not applicable or unspecified; D25.9 Leiomyoma of uterus, unspecified
CPT/HCPCS: 36415; 80053; 85027; 86850; 86900; 86901

== ENCOUNTER 2025-03-09 15:09 | Outpatient (REF) | payer BC, SELFPAY ==
[2025-03-09 14:39] LABS: Abs Immature Grans 0.03 10^3/uL (0.0-0.06); HCT 45.1 % (36.0-46.0); HGB 14.7 g/dL (11.2-15.7); Immature Grans % 0.6 %; MCH 26.3 pg (27.0-33.0); MCHC 32.6 % (32.0-36.0); MCV 81 fL (80-95); MPV 10.0 fL (8.0-11.0); Platelet Count 239 10^3/uL (130-400); RBC 5.58 10^6/uL (3.93-5.22); RDW 13.1 % (11.7-14.6); RDW-SD 37.7 fL; WBC 5.30 10^3/uL (4.4-10.8)
[2025-03-09 15:19] LABS: Hemoglobin A1C 5.0 % (<5.7)
[2025-03-09 15:42] LABS: ALT 42 U/L (14-59); AST 27 U/L (15-37); Albumin 4.4 g/dL (3.4-5.0); Alkaline Phosphatase 109 U/L (46-116); Anion Gap 9.3 mmol/L (3-11); BUN 8 mg/dL (7-18); Bilirubin, Total 0.5 mg/dL (0.2-1.0); CO2 28.7 mmol/L (21.0-32.0); Calcium 9.3 mg/dL (8.5-10.1); Chloride 102 mmol/L (98-107); Estimated GFR 117.77 (mL/min/1.73m2); Ferritin 45 ng/mL (8-252); Glucose 94 mg/dL (74-106); Potassium 3.7 mmol/L (3.5-5.1); Sodium 140 mmol/L (136-145); TSH (W/Ref FT4) 1.10 uIU/mL (0.36-3.74); Total Protein 7.9 g/dL (6.4-8.2)
[2025-03-10 15:16] LABS: Iron 50 ug/dL (50-170); Total Iron Binding Capacity 362 ug/dL (250-450); Transferrin Sat 14 % (15-50)
[2025-03-10 15:25] LABS: Calculated LDL 88 mg/dL (<100); Cholesterol 172 mg/dL (<200); HDL Cholesterol 56 mg/dL (>or=50); Triglyceride 143 mg/dL (<150); Vitamin D 25 Total 19 ng/mL (30-100)
== END 2025-03-09 15:10 | disposition home or self-care (01) ==
LOC: NCHCN 15:09
PROVIDERS: PCP Nurse Practitioner Family; Visit Provider Nurse Practitioner Family
DX: E66.811 Obesity, class 1 (principal); K76.0 Fatty (change of) liver, not elsewhere classified; L60.3 Nail dystrophy; N92.1 Excessive and frequent menstruation with irregular cycle
CPT/HCPCS: 80053; 80061; 82306; 82728; 83036; 83540; 83550; 84443; 85025